=== PATIENT | male | born 1955 | race Caucasian/White ===

== ENCOUNTER 2021-04-02 19:22 | Emergency (ER) | payer OTHER ==
[~2021-04-02] VITALS: Ht 182.9 cm; Wt 117.9 kg
[2021-04-02] MEDS ORDERED: KEFLEX750 MG PO (20:02)
[2021-04-02 20:29] VITALS: BP 143/82
[2021-04-03] MEDS ORDERED: NOVOLIN 70100 UNIT/3 SUBQ (20:31)
== END 2021-04-02 20:29 | disposition home or self-care (01) ==
LOC: ER 19:22
DX: S41.112A Laceration without foreign body of left upper arm, initial encounter (principal); I10 Essential (primary) hypertension; E11.9 Type 2 diabetes mellitus without complications; Z59.0 Homelessness; Z88.5 Allergy status to narcotic agent; X58.XXXA Exposure to other specified factors, initial encounter; Y93.89 Activity, other specified; Y92.89 Other specified places as the place of occurrence of the external cause; Y99.8 Other external cause status

== ENCOUNTER 2021-04-03 18:32 | Inpatient (IN) | payer OTHER ==
[~2021-04-03] VITALS: Ht 175.3 cm; Wt 105.7 kg
[~2021-04-03 18:32] MED LIST: KEFLEX750 MG PO
[2021-04-03 18:38] VITALS: BP 121/68
[2021-04-03 19:38] LABS: ABSOLUTE NEUTROPHILS 6.8 thou/uL (1.4-8.2); BASOPHILS 0.4 % (0.0-2.0); EOSINOPHILS 1.8 % (0.0-3.0); HEMATOCRIT 36.1 % (42.0-52.0); HEMOGLOBIN 12.4 gm/dL (14.0-18.0); LYMPHOCYTES 12.7 % (24.0-44.0); MCH 32.3 pg (26.0-34.0); MCHC 34.4 g/dL (28.0-37.0); MCV 93.8 fL (80.0-100.0); MONOCYTES 8.2 % (1.0-8.0); PLATELET COUNT 256 thou/uL (150-400); POLYS 76.9 % (36.0-66.0); RBC 3.85 mil/uL (4.50-6.00); RDW 13.9 % (10.5-14.5); WBC 8.8 thou/uL (4.0-11.0)
[2021-04-03 19:57] LABS: ALBUMIN 3.5 g/dL (3.4-5.0); CALCIUM 8.9 mg/dL (8.5-10.1); CREATININE 0.9 mg/dL (0.7-1.3); TOTAL BILIRUBIN 1.1 mg/dL (0.2-1.0); TOTAL PROTEIN 7.4 g/dL (6.4-8.2)
[2021-04-03 20:02] LABS: POTASSIUM 2.9 mmol/L (3.5-5.1)
[2021-04-03] MEDS ORDERED: NOVOLIN 70100 UNIT/3 SUBQ (20:31)
[2021-04-03 23:48] LABS: CHOLESTEROL 153 mg/dL (<200); HDL CHOLESTEROL 34 mg/dL (>40); LDL CHOLESTEROL 102 mg/dL (<100); MAGNESIUM 2.1 mg/dL (1.8-2.4); SERUM ASSESSMENT Clear; TC:HDL 4.5 Ratio (Not establshd); TRIGLYCERIDE 87 mg/dL (<150); VLDL 17 mg/dL (<40)
[2021-04-04] VITALS (7 sets, daily range): BP systolic 119–155; BP diastolic 54–80
--- NOTE | 2021-04-04 02:22 | NUR ---
PT IS AN ADMIT FROM EMERGENCY ROOM FOR CELLULITIS HISTORY OF DIBETES FOOT WOUNDS BILATERAL PT IS HOMELESS. RECENTLY WAS AN ADMIT BUT LEFT AMA AND DID NOT GET HIS ANTIBIOTICS FILLED. LEFT ARM ABRASION FROM A FALL HE REPORTS. LUNGS ARE CLEAR ON ROOM AIR. ABDOMEN IS SOFT. RECEIVING ANTIBOTIC TREATMENT FOR PLAN OF CARE CALL LIGHT WITHIN REACH IF NEEDS ASSISTANCE PER NURSING
[2021-04-04 05:25] LABS: HEMATOCRIT 30.2 % (42.0-52.0); MCH 32.3 pg (26.0-34.0); MCHC 34.5 g/dL (28.0-37.0); MCV 93.8 fL (80.0-100.0); RBC 3.21 mil/uL (4.50-6.00); WBC 6.7 thou/uL (4.0-11.0)
[2021-04-04 05:42] LABS: HEMOGLOBIN 10.4 gm/dL (14.0-18.0)
[2021-04-04 05:54] LABS: CALCIUM 7.9 mg/dL (8.5-10.1); CREATININE 0.7 mg/dL (0.7-1.3); POTASSIUM 3.6 mmol/L (3.5-5.1)
--- NOTE | 2021-04-04 16:28 | NUR ---
LOVE REPORT FROM AMPARO DANIELS AT 1315 TODAY. WILL CONTINUE TO ASSESS.
[2021-04-05 05:15] VITALS: BP 150/60
[2021-04-05 07:08] LABS: GLYCOHEMOGLOBIN (HGB A1C) 5.1 % (4.8-5.6)
[2021-04-05 07:32] VITALS: BP 138/58
--- NOTE | 2021-04-05 07:59 | NUR ---
PT LYING IN BED. VOIDING PER URINAL. FENTANYL PROVIDING PAIN RELIEF. RESTING COMFORTABLY. NO NEEDS VOICED. CALL LIGHT WITHIN REACH. FREQUENT OBSERVATION.
[2021-04-05 16:10] VITALS: BP 132/60
--- NOTE | 2021-04-05 17:16 | NUR ---
PT HAS RESTED IN ROOM THROUGH THE DAY. HAD A SHOWER THIS AM. HE IS ALERT ORIENTED X4. IV CAME OUT AND NEW ONE PLACE WITH ONE STICK. HE TOLERATED WELL. ON ABT AND NO ADVERSE EFFECT NOTED. WILL CONT WITH PLAN BRAULIO CARE.
[2021-04-05 19:44] VITALS: BP 153/66
[2021-04-06 04:38] VITALS: BP 143/60
--- NOTE | 2021-04-06 07:55 | NUR ---
PT LYING IN BED. VOIDING PER URINAL. FENTANYL PROVIDING PAIN RELIEF. RESTING COMFORTABLY. NO NEEDS VOICED. CALL LIGHT WITHIN REACH. FREQUENT OBSERVATION.
[2021-04-06 08:10] VITALS: BP 139/78
[2021-04-06] MEDS ORDERED: GENTAMICIN SULF15 GM TOP (14:04)
[2021-04-06] MEDS ORDERED: BACTRIM DS TAB1 EAC1 PO (14:05)
[2021-04-06 16:25] VITALS: BP 148/83
--- NOTE | 2021-04-06 17:11 | NUR ---
met with patient who is reported to be homeless. Patient reports his is here. She works in billing at [employer]. He gave name of Ro Reilly, and 2 other names. Sp with billing who reports they do not work here in billing. Patient reports she has a home [place] of [facility] [address] Patient does not know her phone number. he does no have a cell phone. She knows he is here but cannot call him. Question if works from home she likely has a phone at home. If she knows your at hospital she will likely call semi automatic sewing machine operator to transfer call. Patient reports he just doesnt know address. Can cab vouch close to area and patient walk to home. He reports he cannot walk he has sores on feet. Hopeful calls with address. Vouched medications in pharmacy for $65.20. got patient yoli wrap and further wound supplies at bedside. Updated Rn
--- NOTE | 2021-04-06 20:03 | NUR ---
End shift note:Pt remained safe and comfortable, wound care as ordered, Pt was stable and ready for discharge per Dr's order but Pt has no address to be dropped at. The dishcharge process will be resumed tomorrow per CM, OFE and want ad supervisor phone calls. Other concerns
[2021-04-06 20:56] VITALS: BP 146/81
[2021-04-07 04:45] VITALS: BP 138/65
--- NOTE | 2021-04-07 07:32 | NUR ---
Med/surg telemetry patient alert and oriented x 4. Left forearm cellulitis red, with swelling and areas of eschar, no drainage. Dressings to bilateral feet dry and intact. No request for pain meds for injuries. Tylenol given for c/o left sided headache. Lung sounds C/T/A, bowels sounds active. Heart monitor shows normals sinus rhythm. Will continue to assess.
[2021-04-07 08:00] VITALS: BP 147/70
[2021-04-07 12:25] VITALS: BP 152/70
--- NOTE | 2021-04-07 13:17 | NUR ---
Assumed care of pt this AM. Pt is A&O x4, on RA. Pt denies any pain to feet. Given PRN tylenol for lt rib pain. Dressing change done on BLE. SR on the monitor. Plan to hopefully discharge today. Will continue to monitor.
--- NOTE | 2021-04-07 14:33 | NUR ---
patient to [place] last [place]. He has no address for cab voucher. Offered multiple times to have patient dc to [facility]. he is insistant he has a . He reports is aware he is at [facility]. She has a cell phone. he has no phone but reports she knows he is here. He reports at [place] for him to wait in waiting area and she will pick him up. Offered for cab voucher and skilled care. Patient has medicare A could have skilled time for cont healing of wounds and rehab. he denies. updated Rn
[2021-04-07 15:47] VITALS: BP 152/70
--- NOTE | 2021-04-07 16:43 | NUR ---
DISCHARGE NOTE: IV & tele discontinued. Discharge education provided. All questions answered. Discharge paperwork signed & in chart. Pt wheeled to main entrance for to order picker/assembler.
--- NOTE | 2021-04-09 09:05 | HC ---
[facility] [place] [address] CONSULTATION Name: BG DALEY JR Room #: 209-P [facility] IN M.R.#: [id number] Admission: 04/03/21 Attend Phys: Emiliano Holden MD Discharge: 04/07/21 Date of : 57 Report #: [id number] THIS REPORT FOR: cc: FAM - No family physician/PCP FAM - No family physician/PCP Vitaliy Sales MD ~ DATE OF SERVICE: 04/04/2021 CHIEF COMPLAINT: Diabetic foot ulcerations, both feet. HISTORY OF PRESENT ILLNESS: This is a 65-year-old male patient who is homeless, who was admitted to the hospital with pain, swelling, redness and ulcerations to both of his feet. I have been asked to see him with regard to wound care. The patient states he has not had routine care and has been on his feet quite a bit. PAST MEDICAL HISTORY: Positive for hypertension, type 2 diabetes mellitus and hyperlipidemia. ALLERGIES: CODEINE. MEDICATIONS: Currently takes no medications. SOCIAL HISTORY: The patient is currently a daily smoker. No alcohol or drug use. FAMILY HISTORY: Noncontributory. REVIEW OF SYSTEMS: CONSTITUTIONAL: Denies fever, chills, weight loss. NEUROLOGICAL: The patient denies focal weakness, tingling. EYES: The patient denies visual changes or drainage. ENT: The patient denies earache, nasal drainage or sore throat. CARDIOVASCULAR: The patient denies chest pain, palpitation, diaphoresis. PULMONARY: The patient denies cough or shortness of breath. GASTROINTESTINAL: The patient denies nausea, vomiting or abdominal pain. ORTHOPEDIC: The patient is aware of ulcerations on the plantar aspects of both feet as well as a prior traumatic wound to his left arm. Others systems in a 14-point review of systems are negative. PHYSICAL EXAMINATION: VITAL SIGNS: At this time include temperature 37.3, pulse of 117, respiratory rate of 18, blood pressure 121/68. GENERAL: This is a chronically ill-appearing male patient appears to be in minimal distress. HEENT: Head is normocephalic. Nose and throat clear. [facility] [address] [place] [address] CONSULTATION Name: ANDRAE DALEYROYAL HINOJOSA Room #: 209-P [facility] IN M.R.#: [id number] Admission: 04/03/21 Attend Phys: Emiliano Holden MD Discharge: 04/07/21 Date of : 57 Report #: [id number] NECK: Supple. LUNGS: Clear. ABDOMEN: Soft, bowel sounds present. EXTREMITIES: Examination of the feet demonstrates ulcers on the plantar aspect of both feet, great toes and MTP region. CLINICAL IMPRESSION: 1. Type 2 diabetes mellitus. 2. Hypertension. 3. Hyperlipidemia. 4. Recent traumatic wound to the left arm. RECOMMENDATIONS: At this point in time, we will recommend gentamicin ointment, Xeroform gauze and dry gauze to the plantar ulcers daily. He will need to offload as much as possible. This will be challenging as he is homeless and has no resources. The left arm can be open to air. Continue with medical management of his underlying hypertension and diabetes mellitus. I appreciate being asked to see him in consultation. <ELECTRONICALLY SIGNED> By: Vitaliy Sales MD 04/09/21 0905 [id number] Vitaliy Sales MD /nt
== END 2021-04-07 16:59 | disposition home or self-care (01) | DRG 872 ==
LOC: ER 18:32 → EROBS 22:32 → 2N 22:32
PROVIDERS: Nurse Practitioner Family; ADMIT Internal Medicine; ATTEND Internal Medicine
DX: A41.9 Sepsis, unspecified organism (principal); L03.116 Cellulitis of left lower limb; L03.115 Cellulitis of right lower limb; E11.42 Type 2 diabetes mellitus with diabetic polyneuropathy; Z20.822 Contact with and (suspected) exposure to COVID-19; I10 Essential (primary) hypertension; Z88.6 Allergy status to analgesic agent; E11.65 Type 2 diabetes mellitus with hyperglycemia; E87.6 Hypokalemia; E11.621 Type 2 diabetes mellitus with foot ulcer; E78.5 Hyperlipidemia, unspecified; F17.210 Nicotine dependence, cigarettes, uncomplicated; S91.302A Unspecified open wound, left foot, initial encounter; S91.301A Unspecified open wound, right foot, initial encounter; X58.XXXA Exposure to other specified factors, initial encounter; Y93.89 Activity, other specified; Y92.89 Other specified places as the place of occurrence of the external cause; Y99.8 Other external cause status; Z91.14 Patient's other noncompliance with medication regimen; Z59.0 Homelessness; Z79.899 Other long term (current) drug therapy
CPT/HCPCS: 10081